=== PATIENT | male | born 1995 | race Caucasian/White ===

== ENCOUNTER 2019-02-26 07:15 | Outpatient (CLI) | payer BC ==
--- NOTE | 2019-02-26 10:25 | ULT ---
SONOGRAM ABDOMEN COMPLETE: Date: 02/26/19 HISTORY: Upper abdomen pain. FINDINGS: Gallbladder has a normal appearance without evidence of stones. Common duct is 0.2 cm. Area of increa sed echogenicity along the medial aspect of the right liver lobe may represent a small hemangioma or focal area of fatty infiltration. No intrahepatic biliary dilatation or free fluid. The spleen, kidne ys, and visualized portions of the abdominal aorta, IVC, and pancreas are unremarkable. IMPRESSION: No significant abnormalities are demonstrated. No evidence of gallstones or biliary obstruction. POS: [id number]
== END 2019-02-26 07:16 | disposition home or self-care (01) ==
LOC: BICULT 07:15
PROVIDERS: ATTEND Internal Medicine
DX: R10.10 Upper abdominal pain, unspecified (principal); R94.5 Abnormal results of liver function studies; R68.81 Early satiety; R11.0 Nausea
CPT/HCPCS: 76700

== ENCOUNTER 2022-06-13 07:29 | Outpatient (CLI) | payer BC ==
[2022-06-13] MEDS ORDERED: Iopamidol 300 61% 50 ML VIAL FS ONE (10:00)
[2022-06-13] MEDS ORDERED: Lidocaine 1% PF 5 ML VIAL ONE (10:00)
[2022-06-13] MEDS ORDERED: Gadobenate Dimeglumine 529 MG/1 ML (20ML VIAL) ONE (10:00)
[2022-06-13] MEDS ORDERED: EPINEPHrine 1 MG/ML AMP ONE (10:00)
== END 2022-06-13 07:30 | disposition home or self-care (01) ==
LOC: RAD 07:29
PROVIDERS: ATTEND Orthopaedic Surgery
DX: S43.432A Superior glenoid labrum lesion of left shoulder, initial encounter (principal); M25.532 Pain in left wrist
CPT/HCPCS: 23350; 25246; A9577; J0171; J7050; Q9967